=== PATIENT | female | born 1975 | race Caucasian/White ===

== ENCOUNTER 2020-03-26 08:14 | Inpatient (IN) | payer SELFPAY ==
[~2020-03-26] VITALS: Ht 188 cm; Wt 69.0 kg
[~2020-03-26 08:14] MED LIST: IMITREX100 MG PO; IRON325 M2 PO; MOTRIN 800800 MG/TAB PO; PERCOCET 325 MG1 TA2 PO
[2020-03-26 09:32] LABS: HEMATOCRIT 44.6 % (37.0-47.0); HEMOGLOBIN 14.8 g/dl (12.5-16.0); MEAN CELL VOLUME 97 fl (80.0-100.0); MEAN CORPUSCULAR HEMOGLOBIN 32 pg (27.0-31.0); MEAN CORPUSCULAR HGB CONC 33 g/dl (33.0-37.0); PLATELET COUNT 212 K/mm3 (130-400); RED BLOOD COUNT 4.59 M/mm3 (4.10-5.30); REDCELL DISTRIBUTION WIDTH-CV 12.4 % (11.5-14.5)
[2020-03-26 09:40] LABS: CALCIUM 9.3 mg/dL (8.4-10.2); CREATININE, serum 0.68 (0.52-1.25); POTASSIUM 4.5 mmol/L (3.4-5.0)
--- NOTE | 2020-03-26 12:15 | NUR ---
arrived on unit per stretcher from ED, assisted with use of slide board over and into bed, tolerated well with some c/os pain, will medicate when meds ordered
--- NOTE | 2020-03-26 12:37 | NUR ---
medicated with morphine 2mg slow IV, is tearful and attempting to move her leg, leg was propped on a box on admission to room and this is how it was when came into ED, she states she feels like her leg is starting to cramp, leg is beginning to move off the box, with assistance leg was moved off the box and is placed on 3 pillows, encouraged her to rest at this time and allow the morphine to help
--- NOTE | 2020-03-26 12:44 | NUR ---
crying in pain, medicated with morphine 2mg slow IV
[2020-03-26] MEDS ORDERED: MOTRIN 200200 MG/TAB PO (12:46)
--- NOTE | 2020-03-26 12:56 | NUR ---
Dr Sherwood in to see patient
[2020-03-26 13:01] LABS: ALBUMIN 4.5 gm/dL (3.5-5.0); TOTAL PROTEIN 7.7 gm/dL (6.4-8.2)
--- NOTE | 2020-03-26 13:01 | NUR ---
Dr Ely in to see patient
[2020-03-26 13:04] LABS: PROTHROMBIN TIME 11.5 SECONDS (9.7-12.8)
[2020-03-26 13:10] LABS: BILIRUBIN UNCONJUGATED 0.2 mg/dL (0.0-1.1); BILIRUBIN,DIRECT 0.1 mg/dL (0.0-0.4); BILIRUBIN,TOTAL 0.3 mg/dL (0.0-1.0)
--- NOTE | 2020-03-26 13:20 | NUR ---
resting in bed without crying at this time and is on the phone
[2020-03-26 13:35] VITALS: BP 119/69; PULSE 70; TEMP 98.6
--- NOTE | 2020-03-26 13:52 | NUR ---
SCRUB TECH in and assisted her with sitting up a little to eat lunch
--- NOTE | 2020-03-26 14:50 | NUR ---
she is resting in bed and states has been comfortable since morphine was given, farrell catheter placed with clear yellow urine returned, tolerated well
[2020-03-26 15:10] LABS: COLLECTION METHOD CLEAN CATCH
[2020-03-26 15:15] LABS: MUCOUS Present /lpf; PH 6 (5-8); SQUAMOUS EPITHELIAL 0-2 /hpf; URINE APPEARANCE Clear; URINE BACTERIA None Seen /hpf; URINE BILIRUBIN Negative (NEGATIVE); URINE BLOOD Negative (NEGATIVE); URINE COLOR Yellow; URINE GLUCOSE Negative (NEGATIVE); URINE KETONE Negative (NEGATIVE); URINE LEUKOCYTE ESTERASE Negative (NEGATIVE); URINE NITRATE Negative (NEGATIVE); URINE PROTEIN(semi-quant) Negative (NEGATIVE); URINE RBC 0-2 /hpf; URINE UROBILINOGEN Negative (NEGATIVE)
[2020-03-26 15:44] VITALS: BP 102/66; PULSE 81; TEMP 98
--- NOTE | 2020-03-26 15:59 | NUR ---
awake resting in bed watching TV
--- NOTE | 2020-03-26 16:28 | NUR ---
states pain is starting to increase again, medicated with morphine 2mg slow IV
--- NOTE | 2020-03-26 18:50 | NUR ---
resting in bed talking on the phone, bedside shift report given to EBONIE Wright
--- NOTE | 2020-03-26 18:53 | NUR ---
CHANGE OF SHIFT REPORT RECEIVED FROM DAY SHIFT NURSE.
[2020-03-26 19:45] VITALS: BP 116/76; PULSE 81; TEMP 98.4
--- NOTE | 2020-03-26 20:00 | NUR ---
DECREASED ROM/STRENGTH TO RIGHT HIP D/T HIP FX. DENIES CHEST PAIN/SHORTNESS OF BREATH. DENIES NUMBNESS/TINGLING TO EXTREMITIES AT THIS TIME. SMITH IN PLACE. IVF INFUSING WITH NO PROBLEMS. REPORTS WANTS MS WHEN NEXT AVAILABLE.
[2020-03-26 23:12] VITALS: BP 103/69; PULSE 72; TEMP 98
[2020-03-27] VITALS (13 sets, daily range): BP systolic 92–113; BP diastolic 43–76; PULSE 56–87; TEMP 97.5–99
[2020-03-27 06:51] LABS: BASO % 0.5 % (0.0-2.0); EOS # 0.1 (0.0-0.7); EOS % 1.8 % (0-4.0); GRAN # 4.6 (1.4-6.5); HEMATOCRIT 42.2 % (37.0-47.0); HEMOGLOBIN 14.1 g/dl (12.5-16.0); LYMPH # 1.2 (1.2-3.4); LYMPH % 18.5 % (20.0-51.0); MEAN CELL VOLUME 97 fl (80.0-100.0); MEAN CORPUSCULAR HEMOGLOBIN 32 pg (27.0-31.0); MEAN CORPUSCULAR HGB CONC 33 g/dl (33.0-37.0); MEAN PLATELET VOLUME 10.3 fl (7.4-10.4); MONO # 0.6 (0.1-0.6); MONO % 8.9 % (1.7-9.3); PLATELET COUNT 173 K/mm3 (130-400); RED BLOOD COUNT 4.35 M/mm3 (4.10-5.30); REDCELL DISTRIBUTION WIDTH-CV 12.3 % (11.5-14.5)
[2020-03-27 06:53] LABS: INR 1.1 (0.8-3.0); PROTHROMBIN TIME 12.2 SECONDS (9.7-12.8)
[2020-03-27 06:57] LABS: CALCIUM 8.9 mg/dL (8.4-10.2); CREATININE, serum 0.57 (0.52-1.25); POTASSIUM 3.5 mmol/L (3.4-5.0)
--- NOTE | 2020-03-27 07:52 | NUR ---
CHANGE OF SHIFT REPORT GIVEN TO DAY SHIFT NURSEALEXI.
--- NOTE | 2020-03-27 11:05 | NUR ---
PATIENT ARRIVED TO ROOM 344 VIA BED POST-OP. BP SOFT, BUT VSS. PATIENT DENIES PAIN AT THIS TIME. RIGHT HIP OCCLUSIVE DRESSING IS CD&I. POSTITIVE PEDAL PULSES EQUAL BILATERALLY. CAP REFILL <3 SECONDS. CMS INTACT. SENIA HOSE AND SCD'S IN PLACE. CALL LIGHT WITHIN REACH PATIENT GIVEN WARM BLANKET. PATIENT DENIES PAIN AT THIS TIME.
--- NOTE | 2020-03-27 12:20 | NUR ---
POST-OP VSS. PATIENT TOLERATING CLEAR LIQUIDS. DIET ADVANCED. PATIENT TOLERATING GENERAL DIET. CALL LIGHT IN REACH.
--- NOTE | 2020-03-27 15:26 | NUR ---
Plans to return home with asternarinderpaul Palmer . Alternate contact is Mother in Law Rolanda King . Patient reports that she resides in [place] her pcp is Dr. Fraga and uses [facility] in [facility] for medications. Patient shares that she has a walker and cook, no O2 or other devices. Patient reports that she does not have a SPOA but has transporation. Patient reports that she has [employer] but not inusrance due to her losing his job. Referral sent to Zoe Hinds in [facility]. Will continue to follow.
--- NOTE | 2020-03-27 15:50 | NUR ---
POST-OP VSS AND COMPLETE. PATIENT REPOSTIONED ON HER LEFT SIDE WITH PILLOW BETWEEN HER KNEES. PAIN MEDICATIONS GIVEN. WILL CONTINUE TO MONITOR.
--- NOTE | 2020-03-27 19:00 | NUR ---
PATIENT GIVEN PAIN MEDICATIONS NEEDED DURING MY SHIFT. PATIENT REPOSITIONED NEEDED. SMITH CATHETER DRAINING CLEAR PALE YELLOW URINE TO SMITH BAG. BEDSIDE REPORT GIVEN TO EBONIE SUBRAMANIAN.
--- NOTE | 2020-03-27 19:25 | NUR ---
RECEIVED CHANGE OF SHIFT REPORT FROM DAY SHIFT NURSE.
--- NOTE | 2020-03-27 21:07 | NUR ---
APPLIED FRESH ICE BACK TO RIGHT HIP.
[2020-03-28 00:20] VITALS: BP 103/63; PULSE 75; TEMP 98.7
[2020-03-28 03:54] VITALS: BP 108/71; PULSE 66; TEMP 98.3
--- NOTE | 2020-03-28 06:21 | NUR ---
PATIENT REPORTS FEELS SHE DOES NOT HAVE ENOUGH INFORMATION TO FEEL COMFORTABLE TO HAVE SMITH CATHETER REMOVED AT THIS TIME.
--- NOTE | 2020-03-28 07:18 | NUR ---
CHANGE OF SHIFT REPORT GIVEN TODAY SHIFT NURSEALEXI.
[2020-03-28 07:33] VITALS: BP 119/85; PULSE 85; TEMP 97.6
[2020-03-28 08:14] LABS: BASO % 0.3 % (0.0-2.0); EOS # 0.1 (0.0-0.7); EOS % 1.6 % (0-4.0); GRAN # 4.8 (1.4-6.5); GRAN % 69.5 % (42.2-75.2); HEMOGLOBIN 12.3 g/dl (12.5-16.0); LYMPH # 1.5 (1.2-3.4); LYMPH % 21.9 % (20.0-51.0); MEAN CELL VOLUME 98 fl (80.0-100.0); MEAN CORPUSCULAR HEMOGLOBIN 33 pg (27.0-31.0); MEAN CORPUSCULAR HGB CONC 34 g/dl (33.0-37.0); MEAN PLATELET VOLUME 10.6 fl (7.4-10.4); MONO # 0.4 (0.1-0.6); MONO % 6.3 % (1.7-9.3); PLATELET COUNT 170 K/mm3 (130-400); RED BLOOD COUNT 3.75 M/mm3 (4.10-5.30); REDCELL DISTRIBUTION WIDTH-CV 12.1 % (11.5-14.5)
[2020-03-28 08:24] LABS: CALCIUM 8.7 mg/dL (8.4-10.2); CREATININE, serum 0.58 (0.52-1.25); POTASSIUM 3.2 mmol/L (3.4-5.0)
[2020-03-28 08:30] LABS: HEMATOCRIT 36.7 % (37.0-47.0)
--- NOTE | 2020-03-28 09:00 | NUR ---
UPON ENTRY TO THE ROOM PATIENT IS IN TEARS FROM PAIN IN HER RIGHT HIP. PATIENT EDUCATEDON PAIN MANAGEMENT, STAYING ON TOP OF THE PAIN, AND REQUESTING MEDICATIONS NEEDED. PATIENT QAM MEDICATIONS AND PRN PAIN MEDICATIONS GIVEN AT THIS TIME. IV TO INT PER ORDERS. SMITH CATHETER DISCONTINUED PER ORDERS. 9MLS OF STERILE WATER ASPIRATED FROM BALLOON. TIP INTACT. PATIENT TOLERATED WELL. PERICARE PROVIDED. SENIA HOSE AND SCD'S TO BLE. RIGHT HIP OCCLUSIVE TAPE DRESSING REMOVED AND REPLACED WITH AN AQUACEL DRESSING PER ORDERS. PATIENT TOLERATED WELL. CALL LIGHT IN REACH. PT ENTERED ROOM TO GET PATIENT UP TO CHAIR. WILL CONTINUE TO MONITOR.
[2020-03-28 11:45] VITALS: BP 103/61; PULSE 87; TEMP 99.4
--- NOTE | 2020-03-28 15:50 | NUR ---
PATIENT VOIDING SUFFICIENTLY POST SMITH REMOVAL.
[2020-03-28 16:39] VITALS: BP 107/63; PULSE 95; TEMP 98.7
--- NOTE | 2020-03-28 18:44 | NUR ---
PATIENT UP TO BATHROOM WITH STAFF. PATIENT CURRENTLY RESTING IN CHAIR WITH LEG ELEVATED. ICE PACK IN PLACE. PATIENT REQUESTING PAIN MEDICATION AT THIS TIME. PATIENT ALSO REPORTS A BILSTER TO HER RIGHT LEG. BLISTER OPEN AND NON-DRAINING. BANDAID PLACE OVER SITE. CALL LIGHT IN REACH. WILL REPORT OFF TO ONCOMING NURSE.
--- NOTE | 2020-03-28 19:07 | NUR ---
RECEIVED CHANGE OF SHIFT REPORT FROM DAY SHIFT NURSE.
--- NOTE | 2020-03-28 19:45 | NUR ---
PATIENT GIVEN PRN PAIN MEDICATIONS NEEDED THROUGH MY SHIFT. PATIENT UP TO THE CHAIR FOR MOST OF THE AFTERNOON. PATIENT AMBULATING WITH STAFF TO BATHROOM. ICE PACK OT HIP OFF AND ON. BEDSIDE REPORT GIVEN TO EBONIE SUBRAMANIAN.
[2020-03-28 20:02] VITALS: BP 99/60; PULSE 103; TEMP 99.2
--- NOTE | 2020-03-28 20:49 | NUR ---
DECREASED ROM/STRENGTH TO R HIP D/T SURGERY. DENIES NUMBNESS/TINGLING TO EXTREMITIES. DENIES CHEST PAIN/SHORTNESS OF BREATH AT THIS TIME. VOIDING WITH NO PROBLEMS. SEE eMAR FOR MEDS GIVEN.
[2020-03-29 01:03] VITALS: BP 111/74; PULSE 90; TEMP 99.6
[2020-03-29 03:42] VITALS: BP 100/67; PULSE 87; TEMP 98.9
--- NOTE | 2020-03-29 07:11 | NUR ---
Lying in bed with eyes open. Alert and oriented x4. Rates pain to right hip 4/10, would like pain medication to get ahead of the pain. Aquacel to right hip CDI. Patient says that the plan is to work with PT and if they are good with her progress she may get to go home today. Will administer Brew[place] as prescribed. Denies additional needs.
[2020-03-29 07:15] LABS: HEMOGLOBIN 11.6 g/dl (12.5-16.0); MEAN CELL VOLUME 97 fl (80.0-100.0); MEAN CORPUSCULAR HEMOGLOBIN 33 pg (27.0-31.0); MEAN CORPUSCULAR HGB CONC 34 g/dl (33.0-37.0); MEAN PLATELET VOLUME 10.9 fl (7.4-10.4); PLATELET COUNT 171 K/mm3 (130-400); RED BLOOD COUNT 3.56 M/mm3 (4.10-5.30); REDCELL DISTRIBUTION WIDTH-CV 12.1 % (11.5-14.5)
--- NOTE | 2020-03-29 07:16 | NUR ---
CHANGE OF SHIFT REPORT GIVEN TO DAY SHIFT NURSERASHAWN.
[2020-03-29 07:23] LABS: CALCIUM 8.8 mg/dL (8.4-10.2); CREATININE, serum 0.47 (0.52-1.25); MAGNESIUM 1.8 mg/dL (1.6-2.3); POTASSIUM 3.6 mmol/L (3.4-5.0)
[2020-03-29 07:26] LABS: HEMATOCRIT 34.5 % (37.0-47.0)
[2020-03-29 08:57] VITALS: BP 106/69; PULSE 96; TEMP 99.2
[2020-03-29] MEDS ORDERED: ASPIRIN 32325 MG/TAB PO (10:19)
[2020-03-29] MEDS ORDERED: XARELTO10 MG PO (10:19)
[2020-03-29] MEDS ORDERED: VITAMIN C500 MG PO (10:20)
[2020-03-29] MEDS ORDERED: DUO-KAPS1 CAP PO (10:20)
[2020-03-29] MEDS ORDERED: OSCAL 500 TAB500 MG PO (10:20)
--- NOTE | 2020-03-29 10:36 | NUR ---
Patient rating pain 3/10 in right hip and would like pain medication. Patient says that she is working the hardest with PT and OT so they can evaluate if she can go home. Wants to make sure she is staying ahead of the pain and the pain is starting to increase. Will administer Roxicodone as prescribed. Patient in chair working with OT at this time.
--- NOTE | 2020-03-29 11:57 | NUR ---
Reviewed all discharge instructions with the patient. Questions were answered. Patient verbalizes understanding to all and signs discharge paperwork. Discharge packet provided to the patient. Patient has called and he will come with her clothes and we will provide him with her prescriptions so he can get them filled as patient is getting ready. Patient denies additional needs at this time.
[2020-03-29 12:00] VITALS: BP 101/68; PULSE 101; TEMP 99.1
--- NOTE | 2020-03-29 13:09 | NUR ---
Spouse has dropped off clothes and he was provided with prescriptions to lease picker. Patient rates pain 5/10 in right hip, requests pain med, administer [place] as prescribed. Will assist patient in getting ready at this time.
--- NOTE | 2020-03-29 14:11 | NUR ---
Patient spouse here to pick her up. Patient assisted out to POV with all belongings.
--- NOTE | 2020-03-29 16:26 | NUR ---
Housekeeping Room Attendant attended clinical rounds with the team and patient to discharge home today. Per notes from Ortho, they are not recommending outpatient PT at this time. AKIL met with patient who is in agreement with returning home. Patient reports she has a walker at home and has walked 150 ft with therapy and practiced stairs. AKIL contacted patient's , Spencer to review discharge plan. Spencer confirmed patient has a walker and he reports he also has crutches and a commode for patient. Spencer states they only have one stair to get inside the house, then it's all on one level. No additional needs at this time.
== END 2020-03-29 14:11 | disposition home or self-care (01) | DRG 536 ==
LOC: COL.ER 08:14 → SURG 09:48
PROVIDERS: Emergency Medicine; Physician Assistant; ADMIT Hospitalist
DX: S72.001A Fracture of unspecified part of neck of right femur, initial encounter for closed fracture (principal); D72.829 Elevated white blood cell count, unspecified; E87.6 Hypokalemia; L40.9 Psoriasis, unspecified; F17.210 Nicotine dependence, cigarettes, uncomplicated; Z88.6 Allergy status to analgesic agent; W19.XXXA Unspecified fall, initial encounter
CPT/HCPCS: 99222-AI; 99231-AI; 99239; A9284; C1776; J0690; J1100; J1170; J2175; J2250; J2270; J2405; J2704; J2795; J3010; J7042; J7120